=== PATIENT | female | born 1940 | race Caucasian/White ===

== ENCOUNTER → 2016-09-28 | Day surgery (SDC) | payer MEDICARE ==
--- NOTE | 2016-09-22 14:49 | CR ---
DATE OF CONSULTATION: 09/28/[address] Conley for right cataract extraction on 09/28/2016. Dear Dr. Conley: Thank you for asking me to see Ms. Rhiannon Barker in consultation prior to her right cataract extraction. Ms. Barker, is as you know a 76-year-old female with a past medical history of hypertension, hypothyroidism, breast cancer, ovarian cancer, who reports that she has been in her usual state of health and denies any fevers or chills, chest pain or shortness of breath. The patient reports difficulties with anxiety. Her has been ill. She has had some difficulty sleeping. She feels it is chronic in nature, but been worsened more recently. She notes that she has some chronic back and leg pain. She does use Tylenol for this. Patient has history of ovarian and breast cancer. She follows with oncology. There is no evidence of recurrent disease. The patient has lost a significant amount of weight, dropping from 210 to 175 in the last 1-2 years, feeling this is stress related. The patient has hypertension. Denies any chest pain, palpitations, syncope or presyncope. The patient has hyperglycemia. She denies any polyuria, polyphagia, polydipsia. The patient otherwise denies any fevers or chills, chest pain or shortness of breath, nausea, vomiting, change in bowels. She reports her bowels are loose. 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 REVIEW OF SYSTEMS: Otherwise negative. PAST MEDICAL HISTORY: 1. Hypertension. 2. Hypothyroidism. 3. Left intraductal breast cancer with lumpectomy. 4. Ovarian cancer in June 2007 with BEBA-BSO and bowel resection with colostomy. 5. Hyperglycemia. 6. Osteopenia. 7. Hyperlipidemia. 9. . 10. Tobacco cessation 1982. MEDICATIONS: - baby aspirin daily - ferrous sulfate daily - levothyroxine 50 mcg daily - metoprolol 100 mg by mouth twice a day - multivitamin daily - vitamin D3 2000 International Units daily FAMILY HISTORY: Father had Parkinson's. Mother had strokes and congestive heart failure (CHF). A brother had heart attack. Her sister has hypothyroidism. SOCIAL HISTORY: The patient retired approximately 3 years ago, she was a [employer] supervisor. She is . Her has been ill. The patient is a former smoker, rarely consumes alcohol. PHYSICAL EXAMINATION: She is a thin, older female in no acute distress. VITAL SIGNS: Weight 175 with a body mass index of 34, blood pressure 160/78, heart rate is 76, oxygen saturation is 98%. HEENT: Head is normocephalic. Neck is supple. Pupils equal, reactive to light. External ocular movements are intact. Conjunctivae not injected. Sclerae anicteric. Ears: Bilateral occlusive ceruminosis. She wears eyeglasses. Tongue is midline. Posterior pharynx without inflammation. Neck is supple. No thyromegaly, jugular venous distention (JVD) or carotid bruits. RESPIRATORY: Decreased breath sounds. No expiratory wheezes. Breast exam deferred. CARDIOVASCULAR: Regular rate and rhythm. No murmur, rub, gallop. ABDOMEN: Normoactive bowel sounds, soft, nontender. No hepatosplenomegaly. She has left lower quadrant colostomy. EXTREMITIES: Some arthritic changes but no cyanosis, clubbing or edema. NEUROLOGIC: Alert and oriented intact. LABORATORY DATA: From 09/21/2016: She has a normal CBC, TSH, med profile. EKG done today shows sinus bradycardia with a rate of 58, axis of 10 degrees. Normal TX, QRS, QTC. Essentially normal unchanged EKG. IMPRESSION: Ms. Rhiannon Barker is a 76-year-old female with cardiovascular risk factors positive for hypertension, hyperlipidemia and age who has no signs or symptoms indicative of cardiovascular ischemia and is felt to be at low risk for cardiovascular complications from the proposed surgical intervention, which can be further minimized by the followin. Hypertension. Take metoprolol morning of surgery. Hold aspirin the morning of surgery. 2. Hypothyroid. Take levothyroxine the morning of surgery. 3. Ovarian cancer in 2007, follows with hematology/oncology No evidence of recurrent disease. 4. Breast cancer. Followed by the hematology/oncology. No evidence of recurrence. 5. Osteopenia. Hold calcium and D the morning of surgery. 6. Insomnia. Risks of Tylenol and Benadryl discussed and we will cautiously initiate. 7. Weight loss concerning. Continue to monitor. Appears to be stress related, not interested in further evaluation or treatment. She is up-to-date with colonoscopy and screening for her cancers Thank you very much for this consultation. Please call with questions or concerns.
[~2016-09-28] VITALS: Ht 152.4 cm; Wt 77.1 kg
[~2016-09-28] MED LIST: ACETAMINOPHEN 325 MG TAB PO PRN; ASPI81TA85 PO; AcetaZOLAMIDE 500 MG ER CAP PO ONE; BSS with VANC/TOB/EPI for EYE CASES IR ONE; CALC1TAB21 PO; CYCLOPENTOLATE 2% OPHTH SOLN 2ML BTL OD ONE; FERR325T3 PO; HEALON DUET (HEALON 10MG/ML 0.55ML & HEALON ENDOCOAT 30MG/ML 0.85ML) As Ordered ONE; IRON325T PO; LEVO50TA5 PO; LIDOCAINE 1% SDV 5 ML VIAL As Ordered ONE; LIDOCAINE 4% INJ 5 ML AMP OU ONE; LR 500 ML IV ONE; METO100T5 PO; METO50TA7 PO; MIDAZOLAM INJ 2 MG/2 ML VIAL (J2250) As Ordered ONE; MOXIFLOXACIN IN BSS 0.25MG/0.25ML INTRACAMERAL INJ (OR EYE ONLY)(J2280) As Ordered ONE; MULT1TAB9 PO; OFLOXACIN 0.3 % (OCUFLOX) OPTH SOL 5ML OD ONE; PHENYLEPHRINE 2.5% OPHTH SOL 2ML OD ONE; POVIDONE-IODINE 5% OPHTH PREP SOL 30ML As Ordered ONE; TRIAMCINOLONE PRES FR 40 MG/ML 1ML(TRIESENCE)(OR EYE ONLY)(J3300 PER 1MG) As Ordered ONE; TRIMETHOBENZAMIDE 300 MG CAP PO PRN; TROPICAMIDE 1% OPHTH SOLN 2ML OD ONE; VITA200016 PO; fentaNYL 100 MCG/2 ML INJECTION (J3010) As Ordered ONE
[2016-09-28 12:00] VITALS: BP 171/76
== END | disposition home or self-care (01) ==
LOC: M SDC 08:48
PROVIDERS: ATTEND Ophthalmology
DX: H26.9 Unspecified cataract (principal); I10 Essential (primary) hypertension; E03.9 Hypothyroidism, unspecified; R73.9 Hyperglycemia, unspecified; M85.80 Other specified disorders of bone density and structure, unspecified site; E78.5 Hyperlipidemia, unspecified; R63.4 Abnormal weight loss; D64.9 Anemia, unspecified; M12.9 Arthropathy, unspecified; Z79.899 Other long term (current) drug therapy; Z79.82 Long term (current) use of aspirin; Z85.3 Personal history of malignant neoplasm of breast; Z85.43 Personal history of malignant neoplasm of ovary; Z85.038 Personal history of other malignant neoplasm of large intestine; Z92.21 Personal history of antineoplastic chemotherapy; Z92.3 Personal history of irradiation; Z90.710 Acquired absence of both cervix and uterus; Z78.0 Asymptomatic menopausal state; Z87.891 Personal history of nicotine dependence
CPT/HCPCS: 66984; J2250; J2280; J3010; J3300; V2632